=== PATIENT | female | born 1970 | race Two or more races ===

== ENCOUNTER 2017-05-15 12:36 | Observation (INO) | payer SELFPAY ==
[~2017-05-15] VITALS: Ht 157.5 cm; Wt 113.4 kg
[2017-05-15 13:44] LABS: Basophils # (auto) 0.2 uL; Basophils % (auto) 1.5 % (0.0-2.0); CONDITION Y; Eosinophils # (auto) 0.1 uL; Eosinophils % (auto) 1.1 % (0.0-7.0); Hematocrit 40.1 % (36.0-46.0); Hemoglobin 13.4 g/dL (12.2-16.2); Lymphocytes # (auto) 3.6 uL; Lymphocytes % (auto) 28.7 % (10.0-50.0); Mean Corpuscular Hemoglobin 29.5 pg (28.0-32.0); Mean Corpuscular Hgb Conc. 33.4 g/dL (32.0-36.0); Mean Corpuscular Volume 88.2 fL (80.0-100.0); Mean Platelet Volume 8.7 fL (7.4-10.4); Monocytes # (auto) 0.5 uL; Monocytes % (auto) 3.8 % (0.0-12.0); Neutrophils # (auto) 8.2 uL; Neutrophils % (auto) 64.9 % (37.0-80.0); Platelet Count (auto) 305 10^3/uL (140-450); Red Cell Distribution Width 14.1 % (11.6-16.0); White Blood Cell 12.7 10^3/uL (4.4-10.8)
[2017-05-15 14:12] LABS: BUN/Creatinine Ratio 11.5; Bilirubin, Total 0.4 mg/dL (0.2-1.0); Calcium 8.2 mg/dL (8.5-10.1); Magnesium 2.4 mg/dL (1.6-2.6); Potassium 3.5 mmol/L (3.5-5.1); Total Protein 6.9 g/dL (6.4-8.2)
[2017-05-15] MEDS ORDERED: ONDANSETRON HCL 4 MG/2 ML VIAL IV ONE (17:30)
[2017-05-15] MEDS ORDERED: MORPHINE SULF INJ 2 MG/ML SYRINGE 1ML IV PRN (17:30)
[2017-05-15 17:58] LABS: INR 0.89 (0.9-1.15); Partial Thromboplastin Time 27.6 sec (22.64-33.71); Prothrombin Time 9.7 sec (9.37-12.3)
[2017-05-15 18:20] LABS: Temperature: 24.1 C (20.0-25.0)
[2017-05-15 20:30] LABS: Urine Bilirubin Negative (Negative); Urine Blood 1+ /uL (Negative); Urine Color Yellow (Yellow); Urine Glucose Normal (Normal); Urine Ketone Negative (Negative); Urine Mucus FEW (None Seen); Urine Nitrite Negative (Negative); Urine RBC 24 /hpf (0 - 4); Urine Squamous Epithelial Cell FEW /hpf (<5); Urine Urobilinogen Normal (Negative); Urine pH 6.5 (5.0-8.0)
[2017-05-15] MEDS ORDERED: KETOROLAC TROMETH 30 MG/ML 1ML VIAL IV ONE (20:45)
[2017-05-15 22:00] VITALS: BP 114/57
== END 2017-05-15 22:14 | disposition home or self-care (01) | DRG 313 ==
LOC: EDUNIT# 12:36 → EDBD 12:36 → ER 12:36 → OVERFLOW 17:26 → ER 22:13
PROVIDERS: ADMIT Family Medicine; ATTEND Family Medicine
DX: R07.89 Other chest pain (principal); R11.2 Nausea with vomiting, unspecified; I10 Essential (primary) hypertension; F17.210 Nicotine dependence, cigarettes, uncomplicated; Z82.49 Family history of ischemic heart disease and other diseases of the circulatory system
CPT/HCPCS: 36415; 71010; 80053; 81001; 81025; 83735; 83880; 84443; 84484; 85025; 85379; 85610; 85730; 93005; 96374; 96375; 99285; G0378; J1885; J2270; J2405

== ENCOUNTER 2019-08-12 22:37 | Emergency (ER) | payer SELFPAY ==
[~2019-08-12] VITALS: Ht 157.5 cm; Wt 99.8 kg
[2019-08-13 02:47] VITALS: BP 145/67
== END 2019-08-13 04:03 | disposition home or self-care (01) ==
LOC: ER 22:42
DX: M79.602 Pain in left arm (principal); M25.512 Pain in left shoulder; I10 Essential (primary) hypertension; Z98.51 Tubal ligation status; Z90.89 Acquired absence of other organs; F17.210 Nicotine dependence, cigarettes, uncomplicated; V43.52XA Car driver injured in collision with other type car in traffic accident, initial encounter; Y93.89 Activity, other specified; Y99.8 Other external cause status; Y92.410 Unspecified street and highway as the place of occurrence of the external cause
CPT/HCPCS: 73060; 73070; 73090

== ENCOUNTER 2020-05-15 21:23 | Inpatient (IN) | payer OTHER ==
[~2020-05-15] VITALS: Ht 157.5 cm; Wt 113.3 kg
[2020-05-15] MEDS ORDERED: SODIUM CHLORIDE 0.9% 1,000 ML IV ONE ×2 (22:36)
[2020-05-15 23:52] LABS: Basophils # (auto) 0.1 10 ^3/uL (0-0.2); Basophils % (auto) 0.6 % (0.0-2.0); Eosinophils # (auto) 0 10 ^3/uL (0-0.8); Eosinophils % (auto) 0.3 % (0.0-7.0); Hematocrit 43.8 % (36.0-46.0); Lymphocytes # (auto) 1.9 10 ^3/uL (0.4-5.4); Lymphocytes % (auto) 13.7 % (10.0-50.0); Mean Corpuscular Volume 90.5 fL (80.0-100.0); Monocytes # (auto) 0.5 10 ^3/uL (0-1.3); Monocytes % (auto) 3.7 % (0.0-12.0); Neutrophils # (auto) 11.6 10 ^3/uL (1.6-8.6); Neutrophils % (auto) 81.7 % (37.0-80.0); Nucleated Red Blood Cells % 0.1 %; Platelet Count (auto) 265 10^3/uL (140-450); Red Blood Cells 4.84 10^6/uL (4.0-5.20); Red Cell Distribution Width 14.5 % (11.8-14.3); White Blood Cell 14.2 10^3/uL (4.4-10.8)
[2020-05-16 00:11] LABS: Albumin 3.5 g/dL (3.4-5.0); Calcium 8.8 mg/dL (8.5-10.1); Potassium 3.4 mmol/L (3.5-5.1)
[2020-05-16 00:24] LABS: Bilirubin, Total 0.4 mg/dL (0.2-1.0); Total Protein 7.9 g/dL (6.4-8.2)
[2020-05-16] MEDS ORDERED: POTASSIUM CHL 20MEQ/100ML 100 ML IV ONE (00:30)
[2020-05-16] MEDS ORDERED: DOCUSATE SOD 100 MG CAP PO PRN (04:00)
[2020-05-16] MEDS ORDERED: ONDANSETRON HCL 4 MG/2 ML VIAL IV PRN (04:00)
[2020-05-16] MEDS ORDERED: DEXTROSE (50%) 50ML SYRG IV PRN ×2 (04:00)
[2020-05-16] MEDS ORDERED: ACETAMINOPHEN 325 MG TAB PO PRN (04:00)
[2020-05-16] MEDS ORDERED: MORPHINE SULF INJ 2 MG/ML SYRINGE 1ML IV PRN (04:00)
[2020-05-16] MEDS ORDERED: LORazepam 0.5 MG TAB PO PRN ×2 (04:00→13:00)
[2020-05-16 04:10] LABS: Urine Bacteria FEW /hpf (None Seen); Urine Blood TRACE /uL (Negative); Urine Hyaline Cast FEW /lpf (0 - 2); Urine Mucus FEW (None Seen); Urine Specific Gravity 1.033 (1.001-1.035); Urine WBC 6 /hpf (0 - 5)
[2020-05-16 04:18] LABS: Alcohol, Urine < 3.0 mg/dL (0-10); Amphetamine Screen, Urine NEGATIVE (NEGATIVE); Barbiturate Scree,Urine NEGATIVE (NEGATIVE); Benzodiazephine Screen, Urine NEGATIVE (NEGATIVE); Cannabinoid Screen, Urine NEGATIVE (NEGATIVE); Cocaine Screen, Urine NEGATIVE (NEGATIVE); Opiate Scree,Urine NEGATIVE (NEGATIVE); Phencyclidine Screen, Urine NEGATIVE (NEGATIVE)
[2020-05-16] MEDS: SODIUM CHLORIDE 0.9% 1,000 ML IV SCH ×2 (05:50→20:36)
[2020-05-16] MEDS: cefTRIAXone 1GM/50ML D5W 50 ML IV SCH (05:50)
[2020-05-16] MEDS ORDERED: ACCU-CHEK COMFORT CURVE STRIP VI SCH (06:00)
[2020-05-16] MEDS ORDERED: InsuLIN REG 1unit/0.01ml Soln (100units/ml) SC SCH (06:00)
[2020-05-16] MEDS: ACCU-CHEK COMFORT CURVE STRIP VI SCH ×4 (06:10→23:30)
[2020-05-16] MEDS: InsuLIN REG 1unit/0.01ml Soln (100units/ml) SC SCH ×4 (06:10→23:30)
[2020-05-16] MEDS ORDERED: ASPirin-EC 81 mg tab PO ONE (13:00)
[2020-05-16] MEDS ORDERED: LORazepam 2MG/ML-1ML VIAL IV ONE (13:00)
[2020-05-16 13:25] LABS: Basophils # (auto) 0.1 10 ^3/uL (0-0.2); Basophils % (auto) 0.7 % (0.0-2.0); Eosinophils # (auto) 0 10 ^3/uL (0-0.8); Eosinophils % (auto) 0.2 % (0.0-7.0); Hematocrit 41.8 % (36.0-46.0); Hemoglobin 13.5 g/dL (12.2-16.2); Lymphocytes # (auto) 2.9 10 ^3/uL (0.4-5.4); Lymphocytes % (auto) 21.5 % (10.0-50.0); Mean Corpuscular Hemoglobin 29.2 pg (28.0-32.0); Mean Corpuscular Hgb Conc. 32.2 g/dL (32.0-36.0); Mean Corpuscular Volume 90.6 fL (80.0-100.0); Monocytes # (auto) 0.5 10 ^3/uL (0-1.3); Monocytes % (auto) 3.4 % (0.0-12.0); Neutrophils % (auto) 74.2 % (37.0-80.0); Platelet Count (auto) 265 10^3/uL (140-450); Red Blood Cells 4.61 10^6/uL (4.0-5.20); Red Cell Distribution Width 14.6 % (11.8-14.3); White Blood Cell 13.5 10^3/uL (4.4-10.8)
[2020-05-16 13:50] LABS: Potassium 3.7 mmol/L (3.5-5.1)
[2020-05-16 13:55] LABS: BUN/Creatinine Ratio 15.4; Calcium 8.2 mg/dL (8.5-10.1)
[2020-05-16 18:30] VITALS: BP 123/57
--- NOTE | 2020-05-16 18:34 | NUR ---
MS admit from [facility] admitted to [facility]/MS after SBAR received. Patient oriented to Jennifer Giraldo RN primary RN, unit, room, bed, and unit policies regarding patient care and visiting hours. Patient weighed by bedscale and encouraged to call if they need something. All questions and concerns addressed, patient verbalized understanding. Addendum: 05/16/20 at 1852 by Jennifer Giraldo RN RN *No SBAR report received.
--- NOTE | 2020-05-16 19:05 | NUR ---
Endorsed care Endorsed med rec to NOC RN. All questions answered.
--- NOTE | 2020-05-16 19:30 | NUR ---
Opening Shift Note Assumed care of patient, awake and alert. No S/S of distress/SOB or pain. patient provided with bedpan as per patient request, patient has bilateral weakness to lower extremities. Instructed on POC and to call for assist PRN, will continue to monitor for changes Q1hr and PRN. bed in low position call ligth within reach and fall precautions in place.
--- NOTE | 2020-05-16 21:00 | NUR ---
per patient she will provide home medication list in the morning.
--- NOTE | 2020-05-16 21:00 | NUR ---
md triplett at bedside assessing patient.
[2020-05-16] MEDS: ATORVASTATIN 20 MG TAB PO SCH (21:27)
[2020-05-16] MEDS ORDERED: LORazepam 2MG/ML-1ML VIAL IV PRN (21:30)
[2020-05-16 22:00] VITALS: BP 117/63
[2020-05-16 22:12] LABS: Cholesterol 176 mg/dL (< 200); HDL Cholesterol 26 mg/dL (40-59); LDL Cholesterol 139 mg/dL (< 100); Triglycerides 138 mg/dL (< 150)
--- NOTE | 2020-05-16 23:12 | NUR ---
PATIENT ASSISTED TO BEDSIDE COMMODE. PATIENT HAD A BM. PATIENT PLACED BACK IN BED. DENIES SOB DISTRESS OR PAIN.
--- NOTE | 2020-05-17 00:19 | NUR ---
respiratory therapy paged for cpap trial ordered by md triplett and per patient request.
--- NOTE | 2020-05-17 00:46 | NUR ---
patient sleeping. no signs of sob distress or pain. bilateral chest rise and fall. fall precautions in place.
--- NOTE | 2020-05-17 00:59 | NUR ---
Respiratory note: PT IS ASKING TO TRY CPAP TOMORROW AND IS REFUSING AT THIS TIME. PT SHOWS NO S/S OF SOB OR RESPIRATORY DISTRESS. WILL CONTINUE TO MONITOR.
[2020-05-17 05:00] VITALS: BP 121/42
[2020-05-17] MEDS: HYDROcodone-ACET 5/325MG TAB PO PRN (05:16)
--- NOTE | 2020-05-17 05:16 | NUR ---
pain 6/10 pain to back aching.patient medicate per md order
[2020-05-17] MEDS: InsuLIN REG 1unit/0.01ml Soln (100units/ml) SC SCH ×4 (05:33→23:44)
[2020-05-17] MEDS: ACCU-CHEK COMFORT CURVE STRIP VI SCH ×4 (05:33→23:40)
[2020-05-17 06:05] LABS: Basophils # (auto) 0 10 ^3/uL (0-0.2); Basophils % (auto) 0.4 % (0.0-2.0); Eosinophils # (auto) 0.2 10 ^3/uL (0-0.8); Eosinophils % (auto) 1.3 % (0.0-7.0); Hematocrit 38.6 % (36.0-46.0); Hemoglobin 12.7 g/dL (12.2-16.2); Lymphocytes # (auto) 4.1 10 ^3/uL (0.4-5.4); Lymphocytes % (auto) 35.5 % (10.0-50.0); Mean Corpuscular Hemoglobin 29.6 pg (28.0-32.0); Mean Corpuscular Hgb Conc. 32.9 g/dL (32.0-36.0); Monocytes # (auto) 0.5 10 ^3/uL (0-1.3); Monocytes % (auto) 4.7 % (0.0-12.0); Neutrophils # (auto) 6.7 10 ^3/uL (1.6-8.6); Neutrophils % (auto) 58.1 % (37.0-80.0); Nucleated Red Blood Cells % 0.1 %; Platelet Count (auto) 239 10^3/uL (140-450); Red Blood Cells 4.29 10^6/uL (4.0-5.20); Red Cell Distribution Width 14.4 % (11.8-14.3); White Blood Cell 11.5 10^3/uL (4.4-10.8)
--- NOTE | 2020-05-17 06:16 | NUR ---
PAIN REASSESSMENT PATIENT SLEEPING. BILATERAL CHEST RISE AND FALL. NO SIGNS OF SOB DISTRESS OR PAIN
[2020-05-17 06:30] LABS: Magnesium 2.3 mg/dL (1.6-2.6); Potassium 3.4 mmol/L (3.5-5.1)
[2020-05-17 06:37] LABS: Albumin 2.8 g/dL (3.4-5.0); BUN/Creatinine Ratio 11.1; Bilirubin, Total 0.3 mg/dL (0.2-1.0); Calcium 8.1 mg/dL (8.5-10.1); Total Protein 6.5 g/dL (6.4-8.2)
--- NOTE | 2020-05-17 07:22 | NUR ---
report given to dayshift rn patient is awake and alert denies sob distress or pain
--- NOTE | 2020-05-17 07:30 | NUR ---
Opening Shift Note Assumed care of patient, awake and alert. No S/S of distress/SOB or pain. Instructed on POC and to call for assist PRN, will continue to monitor for changes Q1hr and PRN. Fall precautions in place per safety protocol. Bed Alarm on, bedside commode at bedside, and call light within reach.
[2020-05-17 09:00] VITALS: BP 101/49
--- NOTE | 2020-05-17 09:00 | NUR ---
Respiratory note: PT RESTING COMFORTABLY. SPO2 94% ON 2L NC, HR 67, RR 18, BS CLEAR BILATERALLY. NO FURTHER RESPIRATORY INTERVENTIONS INDICATED.
[2020-05-17] MEDS: ASPirin-EC 81 mg tab PO SCH (09:50)
[2020-05-17] MEDS: cefTRIAXone 1GM/50ML D5W 50 ML IV SCH (09:50)
[2020-05-17 09:52] LABS: Folate (Folic Acid) 3.31 ng/mL (5.38-24)
[2020-05-17] MEDS ORDERED: LORazepam 2MG/ML-1ML VIAL IV ONE (10:00)
[2020-05-17] MEDS ORDERED: POTASSIUM CHL 20 Meq TABLET PO ONE (12:00)
[2020-05-17 13:00] VITALS: BP 135/76
[2020-05-17] MEDS: SODIUM CHLORIDE 0.9% 1,000 ML IV SCH (13:16)
--- NOTE | 2020-05-17 13:36 | NUR ---
EEG-ELECTROENCEPHALOGRAM COMPLETED ON 05/17/2020.
[2020-05-17] MEDS ORDERED: MORPHINE SULF INJ 2 MG/ML SYRINGE 1ML IV PRN (15:00)
[2020-05-17] MEDS ORDERED: PANTOPRAZOLE 40 MG TAB PO ONE (15:00)
--- NOTE | 2020-05-17 16:30 | NUR ---
PT REPORTS THAT SHE JUST WALKED TO THE BATHROOM. PT DECLINED OUT OF BED AGAIN.
[2020-05-17 17:00] VITALS: BP 130/63
[2020-05-17] MEDS ORDERED: CYANOCOBALAMIN (B-12) 1000 MCG/1 ML VIAL IM ONE (19:45)
--- NOTE | 2020-05-17 21:20 | NUR ---
Respiratory note: PLACED PT ON CPAP PER MD ORDERS. CPAP UNIT CONNECTED TO RED OUTLET,WATER CHAMBER FILLED TO ADEQUATE WATER LEVEL. CONTINUES POX AT BEDSIDE PER PROTOCOL. PROBE ON LEFT HAND INDEX FINGER. PT AWARE I CAN BE PAGED AT ANY ADAN SHE HAS A CONCERN WITH HER BREATHING AND OR EQUIPMENT. BOUBACAR RODRIGUEZ COMMUNICATED ON CPAP PLACEMENT.
[2020-05-17 21:35] VITALS: BP 130/63
[2020-05-17 22:00] VITALS: BP 121/63
[2020-05-17] MEDS: ATORVASTATIN 20 MG TAB PO SCH (22:00)
--- NOTE | 2020-05-17 23:27 | NUR ---
1899 RECEIVED REPORT ON PATIENT. 1999. PATIENT MET IN HER ROOM. ALERT AND ORIENTED. STATED SHE WAS IN HOSPITAL FOR AN EPISODE OF DIZZINESS AND NOT SYNCOPE. WAS ADVISED TO DISCUSS SAME WITH HER DOCTOR. SHE DENIED PASSING OUT OR FALLING.
--- NOTE | 2020-05-17 23:34 | NUR ---
Respiratory note: AT BEDSIDE FOR ROUTINE CPAP CHECK. 2LPM BLEED IN ADDED DUE TO PT DESATURATION. PT TOLERATING CPAP WELL. PT APPEARS COMFORTABLY SLEEPING. WILL NOTIFY BOUBACAR RODRIGUEZ OF O2 CHANGE.
--- NOTE | 2020-05-18 02:37 | NUR ---
Respiratory note: AT BEDSIDE FOR ROUTINE CPAP CHECK. PT APPEARS COMFORTABLY SLEEPING. WILL CONTINUE TO MONITOR.
--- NOTE | 2020-05-18 04:31 | NUR ---
Respiratory note: PT OFF CPAP AT THIS TIME. BOUBACAR RODRIGUEZ MADE AWARE.
[2020-05-18 05:00] VITALS: BP 137/72
[2020-05-18] MEDS: ACCU-CHEK COMFORT CURVE STRIP VI SCH ×4 (05:48→21:26)
[2020-05-18] MEDS: InsuLIN REG 1unit/0.01ml Soln (100units/ml) SC SCH ×4 (05:49→21:26)
[2020-05-18 05:59] LABS: Basophils # (auto) 0.1 10 ^3/uL (0-0.2); Basophils % (auto) 0.7 % (0.0-2.0); Eosinophils # (auto) 0.2 10 ^3/uL (0-0.8); Eosinophils % (auto) 1.6 % (0.0-7.0); Hematocrit 40.7 % (36.0-46.0); Hemoglobin 13.2 g/dL (12.2-16.2); Lymphocytes # (auto) 3.7 10 ^3/uL (0.4-5.4); Lymphocytes % (auto) 31.6 % (10.0-50.0); Mean Corpuscular Hemoglobin 29.4 pg (28.0-32.0); Mean Corpuscular Hgb Conc. 32.6 g/dL (32.0-36.0); Mean Corpuscular Volume 90.2 fL (80.0-100.0); Monocytes # (auto) 0.5 10 ^3/uL (0-1.3); Monocytes % (auto) 4.5 % (0.0-12.0); Neutrophils # (auto) 7.1 10 ^3/uL (1.6-8.6); Neutrophils % (auto) 61.6 % (37.0-80.0); Nucleated Red Blood Cells % 0.1 %; Platelet Count (auto) 247 10^3/uL (140-450); Red Blood Cells 4.51 10^6/uL (4.0-5.20); Red Cell Distribution Width 14.3 % (11.8-14.3); White Blood Cell 11.6 10^3/uL (4.4-10.8)
--- NOTE | 2020-05-18 06:18 | NUR ---
Respiratory note: PT OFF CPAP SLEEPING ON 2 L NC. HR 61, RR 20, SPO2 95% ON 2 L NC. BS CLEAR. NO SIGNS OR SYMPTOMS OF RESPIRATORY DISTRESS NOTED AT THIS TIME.
--- NOTE | 2020-05-18 08:00 | NUR ---
Received patient alert and oriented x4, not in distress, wheezing lung sounds in bilateral lung lobes, RR= 18 Sat=94% Heart R=86, deep breathing and coughing encouraged, verbalized understanding, abdomen soft and active in 4 quadrants, last BM=on 05/17/20 as reported, refused provided break fast tray, general skin intact warm to touch, sitting on bed, dangling, denied pain, bed on low position, rails up x2, call light on reach, will continue monitoring.
[2020-05-18 09:00] VITALS: BP 148/78
[2020-05-18] MEDS ORDERED: FOLIC ACID 1 MG in D5W 5% 50 ML IV SCH (10:00)
[2020-05-18] MEDS ORDERED: CYANOCOBALAMIN 500 MCG TAB PO SCH (10:00)
[2020-05-18] MEDS ORDERED: PANTOPRAZOLE 40 MG TAB PO SCH (10:00)
[2020-05-18] MEDS ORDERED: metFORMIN HYDROCHLORIDE 500 MG TAB PO ONE (10:45)
[2020-05-18] MEDS: ASPirin-EC 81 mg tab PO SCH (10:53)
[2020-05-18] MEDS ORDERED: BENAZEPRIL HCL 10 MG TAB PO ONE (12:15)
[2020-05-18] MEDS ORDERED: POTASSIUM CHL 20 Meq TABLET PO ONE (12:15)
[2020-05-18] MEDS ORDERED: DEXTROSE (50%) 50ML SYRG IV PRN (12:15)
[2020-05-18] MEDS ORDERED: ATOR20TA PO (12:20)
[2020-05-18] MEDS ORDERED: FOLI1TAB6 PO (12:20)
[2020-05-18] MEDS ORDERED: CYAN500T26 PO (12:20)
[2020-05-18] MEDS ORDERED: ASPI-378 PO (12:20)
[2020-05-18] MEDS ORDERED: BENA10TA9 PO ×2 (12:20→15:33)
[2020-05-18] MEDS ORDERED: PANT40T PO (12:20)
[2020-05-18] MEDS ORDERED: METF-372 PO (12:20)
[2020-05-18 13:00] VITALS: BP 141/81
--- NOTE | 2020-05-18 14:30 | NUR ---
PT DECLINED OUT OF BED BECAUSE SHE ALREADY WALKED TO THE BATHROOM.
--- NOTE | 2020-05-18 15:00 | NUR ---
OUT OF BED USING WALKER TO THE BATH ROOM, TOLERATED SHOWER WELL WITH ASSISTANCE, BACK TO THE BED, RESTING AND WATCHING TV, NOT IN DISTRESS, DENIED PAIN.
[2020-05-18] MEDS ORDERED: CARI-277 PO (15:33)
[2020-05-18 17:00] VITALS: BP 136/91
[2020-05-18] MEDS: metFORMIN HYDROCHLORIDE 500 MG TAB PO SCH (17:38)
--- NOTE | 2020-05-18 19:29 | NUR ---
NOT IN DISTRESS, RESTING ON BED, REPORT WAS GIVEN TO THE BUNK ASSEMBLER RN.
--- NOTE | 2020-05-18 20:00 | NUR ---
Opening Shift Note Assumed care of patient, awake and alert. No S/S of distress/SOB or pain. Instructed on POC and to call for assist PRN, will continue to monitor for changes Q1hr and PRN.
[2020-05-18] MEDS: ATORVASTATIN 20 MG TAB PO SCH (21:26)
[2020-05-18 22:05] VITALS: BP_SYST 113; BP_SYST 126; BP_DIAS 54; BP_DIAS 70
[2020-05-19 05:00] VITALS: BP 98/38
[2020-05-19] MEDS: HYDROcodone-ACET 5/325MG TAB PO PRN (06:04)
[2020-05-19] MEDS: InsuLIN REG 1unit/0.01ml Soln (100units/ml) SC SCH (06:05)
[2020-05-19] MEDS: ACCU-CHEK COMFORT CURVE STRIP VI SCH (06:05)
[2020-05-19 06:18] LABS: Basophils # (auto) 0.1 10 ^3/uL (0-0.2); Basophils % (auto) 0.7 % (0.0-2.0); Eosinophils # (auto) 0.2 10 ^3/uL (0-0.8); Eosinophils % (auto) 1.7 % (0.0-7.0); Hematocrit 42.2 % (36.0-46.0); Hemoglobin 13.7 g/dL (12.2-16.2); Lymphocytes # (auto) 3.1 10 ^3/uL (0.4-5.4); Lymphocytes % (auto) 27.1 % (10.0-50.0); Mean Corpuscular Hemoglobin 29.5 pg (28.0-32.0); Mean Corpuscular Hgb Conc. 32.5 g/dL (32.0-36.0); Mean Corpuscular Volume 90.7 fL (80.0-100.0); Monocytes # (auto) 0.4 10 ^3/uL (0-1.3); Monocytes % (auto) 3.7 % (0.0-12.0); Neutrophils # (auto) 7.8 10 ^3/uL (1.6-8.6); Neutrophils % (auto) 66.8 % (37.0-80.0); Nucleated Red Blood Cells % 1.6 %; Platelet Count (auto) 234 10^3/uL (140-450); Red Blood Cells 4.66 10^6/uL (4.0-5.20); Red Cell Distribution Width 14.4 % (11.8-14.3); White Blood Cell 11.6 10^3/uL (4.4-10.8)
[2020-05-19 06:38] LABS: BUN/Creatinine Ratio 15.5; Calcium 8.1 mg/dL (8.5-10.1); Potassium 3.6 mmol/L (3.5-5.1)
[2020-05-19 06:41] VITALS: BP 98/38
--- NOTE | 2020-05-19 07:22 | NUR ---
RT NOTE: PT RECEIVED OFF OF BIPAP ALREADY ON RA. SPO2 96 HR 75 RR 14. WILL CONTINUE TO MONITOR.
--- NOTE | 2020-05-19 07:35 | NUR ---
Care report given to Faye Gates, patient is resting no distress.
--- NOTE | 2020-05-19 08:00 | NUR ---
Received patient alert and oriented x4, not in distress, wheezing lung sounds in bilateral lung lobes, RR= 18 Sat=95% Heart R=76, deep breathing and coughing encouraged, verbalized understanding, abdomen soft and active in 4 quadrants, last BM=on 05/17/20 as reported, general skin intact warm to touch, resting on bed, denied pain, head of bed elevated, bed on low position, rails up x2, call light on reach, pending D/C today as ordered, will continue monitoring.
[2020-05-19] MEDS: metFORMIN HYDROCHLORIDE 500 MG TAB PO SCH (08:45)
[2020-05-19 09:22] VITALS: BP 148/78
[2020-05-19 10:00] VITALS: BP 126/59
[2020-05-19] MEDS ORDERED: BENAZEPRIL HCL 10 MG TAB PO SCH (10:00)
--- NOTE | 2020-05-19 10:04 | NUR ---
D/C INSTRUCTIONS AND PRESCRIPTION EDUCATION PROVIDED, VERBALIZED UNDERSTANDING, PCP FOLLOW UP ARRANGEMENT WILL BE DONE BY CALLING FROM HOME REPORTED, D/C RT. HAND IV SITE TOLERATED WELL, VS T=97.6 RR=18 SAT=95% P=67 QG=798/59, NOT IN DISTRESS, DENIED PAIN, D/C HOME ON WC ACCOMPANIED BY DAUGHTER, TOOK ALL BELONGINGS AND LEFT NOTHING BEHIND.
== END 2020-05-19 10:06 | disposition home or self-care (01) | DRG 45 ==
LOC: ER 21:23 → EDBD 21:23 → EDSEX 21:23 → OVERFLOW 21:24 → WEST WING 05-16 18:35
PROVIDERS: ADMIT Hospitalist; ATTEND Internal Medicine
DX: I63.9 Cerebral infarction, unspecified (principal); G93.41 Metabolic encephalopathy; E87.6 Hypokalemia; E86.0 Dehydration; M48.02 Spinal stenosis, cervical region; E66.01 Morbid (severe) obesity due to excess calories; R65.10 Systemic inflammatory response syndrome (SIRS) of non-infectious origin without acute organ dysfunction; E11.65 Type 2 diabetes mellitus with hyperglycemia; E78.5 Hyperlipidemia, unspecified; F17.210 Nicotine dependence, cigarettes, uncomplicated; G47.00 Insomnia, unspecified; J44.9 Chronic obstructive pulmonary disease, unspecified; E53.8 Deficiency of other specified B group vitamins; G47.30 Sleep apnea, unspecified; I11.0 Hypertensive heart disease with heart failure; I50.9 Heart failure, unspecified; Z68.42 Body mass index [BMI] 45.0-49.9, adult; Z79.82 Long term (current) use of aspirin; Z79.899 Other long term (current) drug therapy; Z82.49 Family history of ischemic heart disease and other diseases of the circulatory system; Z83.3 Family history of diabetes mellitus; Z90.49 Acquired absence of other specified parts of digestive tract
CPT/HCPCS: 36415; 70450; 70551; 71045; 72125; 80048; 80053; 80061; 80307; 80320; 81001; 82140; 82607; 82746; 82962; 83036; 83735; 83880; 84132; 84443; 84484; 84702; 85025; 87040; 87086; 93005; 93306; 93886; 94660; 95819; 99291; G0378; J0696; J1815; J2405; J3480; J7060

== ENCOUNTER 2023-01-29 10:08 | Inpatient (IN) | payer OTHER ==
[~2023-01-29] VITALS: Ht 157.5 cm; Wt 111.7 kg
[~2023-01-29 10:08] MED LIST: ASPI-378 PO; ATOR20TA PO; BENA10TA15 PO; CARI-277 PO; CYAN500T26 PO; FOLI1TAB6 PO; METF-372 PO; PANT40T PO
[2023-01-29] MEDS ORDERED: CLOPIDOGREL BISULFATE 75 MG TAB PO ONE (11:00)
[2023-01-29 11:06] LABS: Basophils # (auto) 0.1 10 ^3/uL (0-0.2); Basophils % (auto) 1.1 % (0.0-2.0); Eosinophils # (auto) 0.2 10 ^3/uL (0-0.8); Eosinophils % (auto) 1.6 % (0.0-7.0); Hematocrit 43.4 % (36.0-46.0); Hemoglobin 14.5 g/dL (12.2-16.2); Lymphocytes # (auto) 3.8 10 ^3/uL (0.4-5.4); Lymphocytes % (auto) 35.9 % (10.0-50.0); Mean Corpuscular Hemoglobin 29.7 pg (28.0-32.0); Mean Corpuscular Hgb Conc. 33.3 g/dL (32.0-36.0); Mean Corpuscular Volume 89.1 fL (80.0-100.0); Monocytes # (auto) 0.5 10 ^3/uL (0-1.3); Monocytes % (auto) 4.4 % (0.0-12.0); Neutrophils # (auto) 6.1 10 ^3/uL (1.6-8.6); Nucleated Red Blood Cells % 0.2 %; Red Blood Cells 4.87 10^6/uL (4.0-5.20); Red Cell Distribution Width 14.1 % (11.8-14.3); White Blood Cell 10.7 10^3/uL (4.4-10.8)
[2023-01-29 11:22] LABS: INR 0.89 (0.9-1.15); Partial Thromboplastin Time 28.2 sec (24.6-33.4)
[2023-01-29 11:50] LABS: Urine Bacteria NONE SEEN /hpf (None Seen); Urine Blood TRACE /uL (Negative); Urine Specific Gravity 1.005 (1.001-1.035); Urine WBC 1 /hpf (0 - 5)
[2023-01-29 11:55] LABS: Albumin 3.3 g/dL (3.4-5.0); Calcium 8.7 mg/dL (8.5-10.1); Magnesium 2.5 mg/dL (1.6-2.6); Potassium 4.1 mmol/L (3.5-5.1)
[2023-01-29 12:10] LABS: BUN/Creatinine Ratio 11.6 (10.0-20.0); Bilirubin, Total 0.4 mg/dL (0.2-1.0); Total Protein 7.2 g/dL (6.4-8.2)
[2023-01-29] MEDS ORDERED: NITROGLYCERIN 0.4 MG SL TAB SL PRN (17:30)
[2023-01-29] MEDS ORDERED: ACETAMINOPHEN 325 MG TAB PO PRN (17:30)
[2023-01-29] MEDS ORDERED: hydrALAZINE HCL 20 MG/ML VL IV SCH (18:00)
[2023-01-29] MEDS ORDERED: DEXTROSE (50%) 50ML SYRG IV PRN (18:15)
[2023-01-29] MEDS ORDERED: MORPHINE SULFATE INJ 2 MG/ml SYRG IV PRN (18:15)
[2023-01-29] MEDS ORDERED: hydrALAZINE HCL 20 MG/ML VL IV PRN (18:45)
[2023-01-29 19:00] LABS: INR 0.93 (0.9-1.15); Partial Thromboplastin Time 27.1 sec (24.6-33.4)
[2023-01-29 19:03] LABS: Amphetamine Screen, Urine NEGATIVE (NEGATIVE); Barbiturate Scree,Urine NEGATIVE (NEGATIVE); Benzodiazephine Screen, Urine NEGATIVE (NEGATIVE); Cannabinoid Screen, Urine NEGATIVE (NEGATIVE); Cocaine Screen, Urine NEGATIVE (NEGATIVE); Opiate Scree,Urine NEGATIVE (NEGATIVE); Phencyclidine Screen, Urine NEGATIVE (NEGATIVE)
[2023-01-29 19:08] LABS: Cholesterol 154 mg/dL (< 200)
[2023-01-29 19:11] LABS: HDL Cholesterol 30 mg/dL (40-59); LDL Cholesterol 108 mg/dL (< 100); Triglycerides 188 mg/dL (< 150)
[2023-01-29] MEDS ORDERED: PANTOPRAZOLE 40 MG/10 ML VIAL INJ IV ONE (19:30)
[2023-01-29] MEDS ORDERED: NICOTINE 7MG/24HR TOPICAL PATCH TD ONE (20:00)
[2023-01-29] MEDS: ACCU-CHEK COMFORT CURVE STRIP VI SCH (22:00)
[2023-01-29] MEDS: ATORVASTATIN 20 MG TAB PO SCH (22:44)
[2023-01-29] MEDS: InsuLIN REG 1unit/0.01ml Soln (100units/ml) SC SCH (22:45)
[2023-01-30 06:16] LABS: Basophils # (auto) 0.1 10 ^3/uL (0-0.2); Basophils % (auto) 0.6 % (0.0-2.0); Eosinophils # (auto) 0.2 10 ^3/uL (0-0.8); Eosinophils % (auto) 1.7 % (0.0-7.0); Hematocrit 41.2 % (36.0-46.0); Hemoglobin 13.2 g/dL (12.2-16.2); Lymphocytes # (auto) 4.7 10 ^3/uL (0.4-5.4); Lymphocytes % (auto) 37.5 % (10.0-50.0); Mean Corpuscular Hemoglobin 28.6 pg (28.0-32.0); Mean Corpuscular Hgb Conc. 32.1 g/dL (32.0-36.0); Mean Corpuscular Volume 89.1 fL (80.0-100.0); Monocytes # (auto) 0.6 10 ^3/uL (0-1.3); Monocytes % (auto) 4.4 % (0.0-12.0); Neutrophils # (auto) 6.9 10 ^3/uL (1.6-8.6); Neutrophils % (auto) 55.8 % (37.0-80.0); Nucleated Red Blood Cells % 0.1 %; Red Blood Cells 4.62 10^6/uL (4.0-5.20); Red Cell Distribution Width 14.3 % (11.8-14.3); White Blood Cell 12.4 10^3/uL (4.4-10.8)
[2023-01-30 06:35] LABS: Calcium 8.5 mg/dL (8.5-10.1); Potassium 3.6 mmol/L (3.5-5.1)
[2023-01-30 06:38] LABS: BUN/Creatinine Ratio 21.1 (10.0-20.0); Bilirubin, Total 0.4 mg/dL (0.2-1.0); Total Protein 6.7 g/dL (6.4-8.2)
[2023-01-30] MEDS: InsuLIN REG 1unit/0.01ml Soln (100units/ml) SC SCH ×4 (07:03→23:12)
[2023-01-30] MEDS: ACCU-CHEK COMFORT CURVE STRIP VI SCH ×4 (07:04→23:12)
[2023-01-30] MEDS ORDERED: PANTOPRAZOLE 40 MG TAB PO SCH (10:00)
[2023-01-30] MEDS ORDERED: CLOPIDOGREL BISULFATE 75 MG TAB PO SCH (10:00)
[2023-01-30] MEDS ORDERED: ATORVASTATIN 20 MG TAB PO SCH (10:00)
[2023-01-30] MEDS: ASPirin-EC 81 mg tab PO SCH (10:52)
[2023-01-30] MEDS: FOLIC ACID 1 MG TAB PO SCH (10:52)
[2023-01-30] MEDS: BENAZEPRIL HCL 10 MG TAB PO SCH (10:53)
[2023-01-30] MEDS: CYANOCOBALAMIN 500 MCG TAB PO SCH (10:53)
[2023-01-30] MEDS: NICOTINE 7MG/24HR TOPICAL PATCH TD SCH (10:53)
[2023-01-30] MEDS: ENOXAPARIN SOD 40 MG/0.4 ML SYRINGE SC SCH (10:54)
[2023-01-30] MEDS: PANTOPRAZOLE 40 MG/10 ML VIAL INJ IV SCH (11:54)
[2023-01-30 22:28] VITALS: BP 116/68
[2023-01-30] MEDS: ATORVASTATIN 20 MG TAB PO SCH (23:06)
[2023-01-31] VITALS (8 sets, daily range): BP systolic 102–121; BP diastolic 40–82
[2023-01-31] MEDS: InsuLIN REG 1unit/0.01ml Soln (100units/ml) SC SCH ×2 (07:00→11:30)
[2023-01-31] MEDS: ACCU-CHEK COMFORT CURVE STRIP VI SCH ×2 (07:24→12:02)
[2023-01-31] MEDS: ASPirin-EC 81 mg tab PO SCH (09:52)
[2023-01-31] MEDS: FOLIC ACID 1 MG TAB PO SCH (09:52)
[2023-01-31] MEDS: PANTOPRAZOLE 40 MG/10 ML VIAL INJ IV SCH (09:52)
[2023-01-31] MEDS: ENOXAPARIN SOD 40 MG/0.4 ML SYRINGE SC SCH (09:54)
[2023-01-31] MEDS: NICOTINE 7MG/24HR TOPICAL PATCH TD SCH (09:54)
[2023-01-31] MEDS: CYANOCOBALAMIN 500 MCG TAB PO SCH (09:54)
[2023-01-31] MEDS: BENAZEPRIL HCL 10 MG TAB PO SCH (09:54)
[2023-01-31] MEDS ORDERED: ONDANSETRON HCL 4 MG/2 ML VIAL IV ONE (10:15)
[2023-01-31] MEDS ORDERED: fentaNYL CITRATE 100 MCG/2 ML VL IV ONE (10:15)
[2023-01-31] MEDS ORDERED: LIDOCAINE VISCOUS 2% 15ML UD PO ONE (10:15)
[2023-01-31] MEDS ORDERED: MIDAZOLAM HCL 2MG/2ML 2ml VIAL (1mg/ml) IV ONE (10:15)
[2023-01-31] MEDS ORDERED: BLOO1KIT60 XX (14:43)
[2023-02-01 12:18] LABS: Hepatitis C Antibody Negative (Negative)
== END 2023-01-31 17:55 | disposition home or self-care (01) | DRG 45 ==
LOC: ER 10:08 → TELE 18:07 → TELE-WESTW 01-30 22:25
PROVIDERS: ADMIT Nurse Practitioner Family; ATTEND Nurse Practitioner Acute Care
PROC: B24BZZ4 Ultrasonography of Heart with Aorta, Transesophageal (ICD-10-PCS; principal; 2023-01-31)
DX: I63.9 Cerebral infarction, unspecified (principal); I11.0 Hypertensive heart disease with heart failure; I50.9 Heart failure, unspecified; E11.9 Type 2 diabetes mellitus without complications; Z20.822 Contact with and (suspected) exposure to COVID-19; M54.9 Dorsalgia, unspecified; E78.2 Mixed hyperlipidemia; G89.29 Other chronic pain; E66.9 Obesity, unspecified; F17.210 Nicotine dependence, cigarettes, uncomplicated; R07.89 Other chest pain; Z79.82 Long term (current) use of aspirin; Z79.84 Long term (current) use of oral hypoglycemic drugs; Z79.4 Long term (current) use of insulin; Z79.899 Other long term (current) drug therapy; Z82.49 Family history of ischemic heart disease and other diseases of the circulatory system; Z90.49 Acquired absence of other specified parts of digestive tract; Z98.51 Tubal ligation status; Z68.42 Body mass index [BMI] 45.0-49.9, adult
CPT/HCPCS: 36415; 70450; 70551; 71045; 80053; 80061; 80307; 81001; 82962; 83036; 83735; 83880; 84443; 84484; 85025; 85610; 85730; 86803; 87340; 87426; 93005; 93312; 93886; 99152; C9113; G0378; J1815; J2250; J2405